=== PATIENT | female | born 1985 | race Caucasian/White ===

== ENCOUNTER 2024-07-30 16:14 | Emergency (ER) | payer MEDICAID, OTHER ==
[~2024-07-30] VITALS: Ht 157.5 cm; Wt 120.0 kg
[2024-07-30 16:16] VITALS: O2SAT 99
[2024-07-30 16:59] LABS: CHLORIDE 101 mEq/L (98-107); SODIUM 138 mEq/L (136-145)
[2024-07-30 17:00] LABS: CARBON DIOXIDE 29 mEq/L (21-32)
[2024-07-30] MEDS: KETOROLAC 30MG/ML VIAL IV STA (17:00)
[2024-07-30 17:01] LABS: CALCIUM 9.8 mg/dL (8.7-10.4)
[2024-07-30] MEDS: SODIUM CHLORIDE 0.9% 1,000 ML IV ONE (17:01)
[2024-07-30] MEDS: DIPHENHYDRAMINE 50MG/ML VIAL IV ONE (17:01)
[2024-07-30] MEDS: METOCLOPRAMIDE HCL 10MG/2ML VIAL IV ONE (17:01)
[2024-07-30 17:05] LABS: CREATININE 0.7 mg/dL (0.6-1.0); GLUCOSE 92 mg/dL (70-105); UREA NITROGEN BLOOD 7 mg/dL (9-23)
[2024-07-30 17:07] LABS: BASOPHILS % 0.6 % (0.0-2.0); EOSINOPHILS % 0.4 % (0.0-5.0); HCG SCREEN NEGATIVE; LYMPHOCYTES % 23.6 % (20.0-50.0); MEAN CORPUSCULAR HEMOGLOBIN 27.9 pg (28.0-32.0); MEAN CORPUSCULAR HGB CONC 33.4 g/dL (31.0-37.0); MEAN CORPUSCULAR VOLUME 83.5 fL (81.0-99.0); MEAN PLATELET VOLUME 8.9 fl (7.4-10.4); MONOCYTES % 7.2 % (2.0-8.0); NEUTROPHILS % 68.2 % (40.0-76.0); PLATELET 401 x1000/uL (130-400); RED BLOOD CELL COUNT 4.67 mill/uL (4.2-5.4); RED CELL DISTRIBUTION WIDTH 14.8 % (11.6-14.6)
[2024-07-30 18:27] VITALS: TEMP 37.1
[2024-07-30] MEDS ORDERED: DIAZEPAM 5 MG TABLET PO ONE (20:15)
[2024-07-30] MEDS ORDERED: NAPR220C61 MT (21:21)
[2024-07-30 21:59] VITALS: BP 147/85; PULSE 85; RESP 12; O2SAT 98
== END 2024-07-30 22:06 | disposition home or self-care (01) ==
LOC: ER 16:14
DX: R51.9 Headache, unspecified (principal); I10 Essential (primary) hypertension; Z88.0 Allergy status to penicillin; Z79.899 Other long term (current) drug therapy
CPT/HCPCS: 80048; 84703; 85025; 36415; 70450; 96361; 96374; 96375; 99285; J1200; J1885; J2765; J7030; Z7610 ×4; A4606